=== PATIENT | male | born 1990 | race African-American/Black ===

== ENCOUNTER 2017-06-15 18:59 | Emergency (ER) | payer OTHER | END 2017-06-15 21:48 | disposition home or self-care (01) | LOC: D.ER 18:59 | DX: I82.401 Acute embolism and thrombosis of unspecified deep veins of right lower extremity (principal); F17.200 Nicotine dependence, unspecified, uncomplicated ==

== ENCOUNTER 2017-11-29 22:43 | Emergency (ER) | payer OTHER ==
[~2017-11-29] VITALS: Ht 180.3 cm; Wt 102.9 kg
[2017-11-29 22:56] VITALS: Ht 180.3 cm; Wt 102.9 kg
[2017-11-29 23:17] LABS: BASOPHILS 0.7 % (0-2); EOSINOPHILS 2.6 % (0-7); HEMOGLOBIN 13.5 g/dL (13.5-17.5); LYMPHOCYTES 40.3 % (15-50); MCHC 32.9 g/dL (31.0-37.0); MCV 66.9 fL (80.0-100.0); MEAN PLATELET VOLUME 8.6 fL (7.4-10.4); MONOCYTES 12.4 % (2-11); PLATELET COUNT 228 10x3/uL (130-400); RBC 6.13 10x6/uL (4.20-6.10); RDW 14.4 % (11.5-14.5); WBC 4.6 10x3/uL (4.8-10.8)
[2017-11-29 23:25] LABS: APPEARANCE CLEAR (CLEAR); BILIRUBIN NEGATIVE (NEGATIVE); COLOR YELLOW (YELLOW); GLUCOSE NEGATIVE (NEGATIVE); KETONE NEGATIVE (NEGATIVE); NITRITE NEGATIVE (NEGATIVE); PROTEIN NEGATIVE (NEGATIVE); SPECIFIC GRAVITY 1.015 (1.005-1.020)
[2017-11-29 23:28] LABS: ALBUMIN 3.9 g/dL (3.4-5.0); ALKALINE PHOSPHATASE 64 U/L (46-116); ALT (SGPT) 37 U/L (10-68); AMYLASE - SERUM 127 U/L (25-115); BILIRUBIN - TOTAL 0.29 mg/dL (0.2-1.3); CALC OSMOLALITY 281 mosm/kg (275-300); CALCIUM 8.2 mg/dL (8.5-10.1); CARBON DIOXIDE 27.8 mmol/L (21.0-32.0); CHLORIDE - SERUM 106 mmol/L (98-107); GLUCOSE 94 mg/dL (74-106); LIPASE 287 U/L (73-393); POTASSIUM - SERUM 3.4 mmol/L (3.5-5.1); SODIUM 141 mmol/L (136-145); UREA NITROGEN 14 mg/dL (7-18); eGFR NON AFRICAN AMERICAN > 90 mL/min (90-120)
[2017-11-29] MEDS ORDERED: LOMOTIL TABLET1 TAB PO (23:29)
[2017-11-29] MEDS ORDERED: FLAGYL500 MG PO (23:29)
[2017-11-29] MEDS ORDERED: CIPRO500 MG PO (23:29)
[2017-11-30] VITALS: BP 130/74
== END 2017-11-30 00:04 | disposition home or self-care (01) ==
LOC: D.ER 22:43
PROVIDERS: Family Medicine
DX: K52.9 Noninfective gastroenteritis and colitis, unspecified (principal); R19.7 Diarrhea, unspecified